=== PATIENT | female | born 1980 | race Caucasian/White ===

== ENCOUNTER 2021-09-12 19:04 | Emergency (ER) | payer OTHER, MEDICAID ==
[~2021-09-12] VITALS: Ht 170.2 cm; Wt 140.6 kg
[2021-09-12] MEDS ORDERED: NOVOLOG100 UNIT/M SUBQ (19:19)
[2021-09-12] MEDS ORDERED: AMANTADINE50 MG/5 ML PO (19:20)
[2021-09-12] MEDS ORDERED: AMOXICILLIN 50500 MG PO (19:20)
[2021-09-12] MEDS ORDERED: LANTUS100 UNIT/M SUBQ (19:20)
[2021-09-12] MEDS ORDERED: CHILDREN'S ASPI81 M1 PO (19:21)
[2021-09-12] MEDS ORDERED: LIPITOR80 MG PO (19:22)
[2021-09-12] MEDS ORDERED: PLAVIX 75 MG TA75 MG PO (19:23)
[2021-09-12] MEDS ORDERED: LAXATIVE SUPPOS10 MG RECTAL (19:23)
[2021-09-12] MEDS ORDERED: LANSOPRAZOLE PO (19:26)
[2021-09-12] MEDS ORDERED: NEURONTIN100 MG PO (19:26)
[2021-09-12] MEDS ORDERED: HYDROCORT-PRAMO30 G1 TOP (19:28)
[2021-09-12] MEDS ORDERED: CYMBALTA60 MG PO (19:29)
[2021-09-12] MEDS ORDERED: LAMICTAL (BLUE)25 MG PO (19:29)
[2021-09-12] MEDS ORDERED: MELATONIN10 M2 PO (19:30)
[2021-09-12] MEDS ORDERED: LISINOPRIL5 MG PO (19:30)
[2021-09-12] MEDS ORDERED: MAGNESIUM250 M1 PO (19:31)
[2021-09-12] MEDS ORDERED: MIRALAX119 GM PO (19:31)
[2021-09-12] MEDS ORDERED: SENEXON-S 50-81 EACH PO (19:32)
[2021-09-12] MEDS ORDERED: PYRIDOXINE HCL25 MG PO (19:32)
[2021-09-12] MEDS ORDERED: PROAIR HFA8.5 GM INH (19:34)
[2021-09-12] MEDS ORDERED: MAALOX ADVANCE355 ML PO (19:35)
[2021-09-12] MEDS ORDERED: ARTIFICIAL TEAR1510 OPHTHALMIC (19:35)
[2021-09-12] MEDS ORDERED: HYDROCODON-ACE1 EAC7 PO (19:36)
[2021-09-12] MEDS ORDERED: NARCAN4 MG NARES (19:36)
[2021-09-12] MEDS ORDERED: ONDANSETRON ODT4 MG PO (19:37)
[2021-09-12] MEDS ORDERED: SALINE NASAL SP88 ML NASAL (19:38)
[2021-09-12] MEDS ORDERED: GAS RELIEF80 MG PO (19:38)
[2021-09-12] MEDS ORDERED: DICLOFENAC SOD100 G1 TOP (19:40)
[2021-09-12] MEDS ORDERED: TRUEPLUS GLUCOSE PO (19:40)
[2021-09-12] MEDS ORDERED: LIDODERM1 EACH TRANSDERM (19:41)
[2021-09-12 21:44] VITALS: BP 155/77
== END 2021-09-12 22:23 | disposition home or self-care (01) ==
LOC: M.ERS 19:04
DX: M25.511 Pain in right shoulder (principal); M54.2 Cervicalgia; Z86.73 Personal history of transient ischemic attack (TIA), and cerebral infarction without residual deficits; Z79.4 Long term (current) use of insulin; Z79.899 Other long term (current) drug therapy; Z79.82 Long term (current) use of aspirin; W19.XXXA Unspecified fall, initial encounter; Y93.89 Activity, other specified; Y92.89 Other specified places as the place of occurrence of the external cause; Y99.8 Other external cause status

== ENCOUNTER 2021-10-09 16:18 | Emergency (ER) | payer OTHER, MEDICAID ==
[~2021-10-09] VITALS: Ht 170.2 cm; Wt 94.7 kg
[~2021-10-09 16:18] MED LIST: AMANTADINE50 MG/5 ML PO; AMOXICILLIN 50500 MG PO; ARTIFICIAL TEAR1510 OPHTHALMIC; CHILDREN'S ASPI81 M1 PO; CYMBALTA60 MG PO; DICLOFENAC SOD100 G1 TOP; GAS RELIEF80 MG PO; HYDROCODON-ACE1 EAC7 PO; HYDROCORT-PRAMO30 G1 TOP; LAMICTAL (BLUE)25 MG PO; LANSOPRAZOLE PO; LANTUS100 UNIT/M SUBQ; LAXATIVE SUPPOS10 MG RECTAL; LIDODERM1 EACH TRANSDERM; LIPITOR80 MG PO; LISINOPRIL5 MG PO; MAALOX ADVANCE355 ML PO; MAGNESIUM250 M1 PO; MELATONIN10 M2 PO; MIRALAX119 GM PO; NARCAN4 MG NARES; NEURONTIN100 MG PO; NOVOLOG100 UNIT/M SUBQ; ONDANSETRON ODT4 MG PO; PLAVIX 75 MG TA75 MG PO; PROAIR HFA8.5 GM INH; PYRIDOXINE HCL25 MG PO; SALINE NASAL SP88 ML NASAL; SENEXON-S 50-81 EACH PO; TRUEPLUS GLUCOSE PO
[2021-10-09 17:03] LABS: ABSOLUTE BASOPHILS 0.1 thou/uL (0.0-0.2); ABSOLUTE EOSINOPHILS 0.1 thou/uL (0.0-0.7); ABSOLUTE LYMPHOCYTES 1.8 thou/uL (0.8-5.3); ABSOLUTE MONOCYTES 0.4 thou/uL (0.0-1.2); ABSOLUTE NEUTROPHILS 5.3 thou/uL (1.6-8.1); BASOPHILS 1.1 %; EOSINOPHILS 1.9 %; HEMATOCRIT 35.9 % (37.0-47.0); HEMOGLOBIN 12.1 gm/dL (12.0-15.0); LYMPHOCYTES 23.1 %; MCH 28.7 pg (26.0-34.0); MCHC 33.6 g/dL (28.0-37.0); MCV 85.4 fL (80.0-100.0); MONOCYTES 4.8 %; MPV 8.7 fl. (7.2-11.1); NUCLEATED RBCS 0 /100WBC; PLATELET COUNT* 227 thou/uL (150-400); POLYS 69.1 %; RBC 4.21 mil/uL (4.20-5.00); WBC 7.6 thou/uL (4.0-11.0)
[2021-10-09 17:12] LABS: CALCIUM 8.6 mg/dL (8.5-10.1); CREATININE 0.6 mg/dL (0.6-1.3); POTASSIUM 4.1 mmol/L (3.5-5.1)
[2021-10-09 17:14] LABS: APTT 25.6 Seconds (25.0-31.3); PROTIME 9.9 Seconds (9.20-11.50)
[2021-10-09 17:28] LABS: ALBUMIN 2.5 g/dL (3.4-5.0); CK-MB MASS 0.6 ng/mL (<0.5-3.6); MAGNESIUM 1.7 mg/dL (1.8-2.4); TOTAL BILIRUBIN 0.2 mg/dL (<0.1-1.0); TOTAL PROTEIN 6.6 g/dL (6.4-8.2)
[2021-10-09 21:22] VITALS: BP 123/77
--- NOTE | 2021-10-10 09:54 | EKG ---
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
== END 2021-10-09 21:22 ==
LOC: M.ERS 16:18
PROVIDERS: Emergency Medicine
DX: R07.89 Other chest pain (principal); Z20.822 Contact with and (suspected) exposure to COVID-19; Z71.1 Person with feared health complaint in whom no diagnosis is made; E11.9 Type 2 diabetes mellitus without complications; I10 Essential (primary) hypertension; Z79.4 Long term (current) use of insulin; Z79.82 Long term (current) use of aspirin; Z79.899 Other long term (current) drug therapy

== ENCOUNTER 2021-10-23 23:03 | Emergency (ER) | payer OTHER, MEDICAID ==
[~2021-10-23] VITALS: Ht 170.2 cm; Wt 93.0 kg
[2021-10-23 23:25] LABS: URINE BILIRUBIN NEGATIVE (Negative); URINE BLOOD 3+ (Negative); URINE CLARITY CLOUDY; URINE COLOR YELLOW; URINE GLUCOSE-RANDOM NEGATIVE (Negative); URINE KETONES NEGATIVE (Negative); URINE LEUKOCYTES-REFLEX 2+ (Negative); URINE NITRITE-REFLEX POSITIVE (Negative); URINE PROTEIN 2+ (Negative); URINE UROBILINOGEN 0.2 E.U./dl (0.2-1.0)
[2021-10-23 23:41] LABS: ABSOLUTE BASOPHILS 0.1 thou/uL (0.0-0.2); ABSOLUTE EOSINOPHILS 0.2 thou/uL (0.0-0.7); ABSOLUTE MONOCYTES 0.4 thou/uL (0.0-1.2); ABSOLUTE NEUTROPHILS 4.5 thou/uL (1.6-8.1); BASOPHILS 1.1 %; EOSINOPHILS 2.7 %; HEMATOCRIT 32.4 % (37.0-47.0); LYMPHOCYTES 27.7 %; MCH 28.3 pg (26.0-34.0); MCHC 33.9 g/dL (28.0-37.0); MCV 83.5 fL (80.0-100.0); MONOCYTES 5.2 %; MPV 9.3 fl. (7.2-11.1); NUCLEATED RBCS 0 /100WBC; PLATELET COUNT* 242 thou/uL (150-400); POLYS 63.3 %; RBC 3.88 mil/uL (4.20-5.00); RDW-CV 14.6 % (10.5-14.5); WBC 7.1 thou/uL (4.0-11.0)
[2021-10-23 23:50] LABS: CALCIUM 8.6 mg/dL (8.5-10.1); CREATININE 0.6 mg/dL (0.6-1.3); POTASSIUM 4.2 mmol/L (3.5-5.1)
[2021-10-23 23:54] LABS: ALBUMIN 2.4 g/dL (3.4-5.0); MAGNESIUM 1.7 mg/dL (1.8-2.4); TOTAL BILIRUBIN 0.3 mg/dL (<0.1-1.0); TOTAL PROTEIN 6.5 g/dL (6.4-8.2)
[2021-10-24 00:08] LABS: SQUAMOUS 4-10 Moderate /LPF (0-3)
[2021-10-24 00:09] LABS: BACTERIA-REFLEX >30 Many /HPF (None Seen); CASTS None Seen /LPF (None Seen); CRYSTALS None Seen /LPF (None Seen); URINE RBC >20 Many /HPF (0-2)
[2021-10-24] MEDS ORDERED: LEVOFLOXACIN750 MG PO (02:34)
[2021-10-24 03:05] VITALS: BP 140/65
== END 2021-10-24 03:05 | disposition home or self-care (01) ==
LOC: M.ERS 23:03
PROVIDERS: Personal Emergency Response Attendant
DX: T83.84XA Pain due to genitourinary prosthetic devices, implants and grafts, initial encounter (principal); R10.84 Generalized abdominal pain; N20.0 Calculus of kidney; N39.0 Urinary tract infection, site not specified; N13.30 Unspecified hydronephrosis; E11.9 Type 2 diabetes mellitus without complications; Z79.899 Other long term (current) drug therapy

== ENCOUNTER 2021-12-05 00:46 | Inpatient (IN) | payer OTHER, MEDICAID ==
[~2021-12-05] VITALS: Ht 170.2 cm; Wt 97.8 kg
[~2021-12-05 00:46] MED LIST changes: +LEVOFLOXACIN750 MG PO
[2021-12-05 00:53] VITALS: BP 132/78
[2021-12-05] MEDS ORDERED: ELIQUIS5 M1 PO (01:01)
[2021-12-05 10:00] VITALS: BP 122/78
[2021-12-05 11:36] LABS: ABSOLUTE BASOPHILS 0.1 thou/uL (0.0-0.2); ABSOLUTE EOSINOPHILS 0.1 thou/uL (0.0-0.7); ABSOLUTE LYMPHOCYTES 1.5 thou/uL (0.8-5.3); ABSOLUTE MONOCYTES 0.3 thou/uL (0.0-1.2); ABSOLUTE NEUTROPHILS 7.4 thou/uL (1.6-8.1); BASOPHILS 0.8 %; CALCIUM 9.1 mg/dL (8.5-10.1); CREATININE 0.8 mg/dL (0.6-1.3); HEMATOCRIT 25.7 % (37.0-47.0); HEMOGLOBIN 8.8 gm/dL (12.0-15.0); LYMPHOCYTES 15.9 %; MCH 28.2 pg (26.0-34.0); MCHC 34.3 g/dL (28.0-37.0); MCV 82.3 fL (80.0-100.0); MONOCYTES 3.6 %; MPV 8.1 fl. (7.2-11.1); NUCLEATED RBCS 0 /100WBC; PLATELET COUNT* 317 thou/uL (150-400); POLYS 78.7 %; POTASSIUM 4.2 mmol/L (3.5-5.1); RBC 3.12 mil/uL (4.20-5.00); RDW-CV 15.7 % (10.5-14.5); TOTAL BILIRUBIN 0.2 mg/dL (<0.1-1.0); WBC 9.4 thou/uL (4.0-11.0)
[2021-12-05 13:16] LABS: CALCIUM 8.9 mg/dL (8.5-10.1); CREATININE 0.7 mg/dL (0.6-1.3); POTASSIUM 4.2 mmol/L (3.5-5.1)
[2021-12-05 13:19] LABS: MAGNESIUM 1.7 mg/dL (1.8-2.4); PHOSPHORUS* 4.8 mg/dL (2.5-4.9)
[2021-12-05 14:00] VITALS: BP 120/68
[2021-12-05 20:31] VITALS: BP 118/70
[2021-12-05 22:51] VITALS: BP 118/70
[2021-12-05 23:05] VITALS: BP 151/86
[2021-12-06 04:00] VITALS: BP 153/66
[2021-12-06 09:00] VITALS: BP 153/79
[2021-12-06 13:22] VITALS: BP 142/76
[2021-12-06 21:09] VITALS: BP 150/79
[2021-12-07 00:42] VITALS: BP 135/82
[2021-12-07 08:00] VITALS: BP 135/54
[2021-12-07 12:08] LABS: ABSOLUTE EOSINOPHILS 0.1 thou/uL (0.0-0.7); ABSOLUTE LYMPHOCYTES 1.5 thou/uL (0.8-5.3); ABSOLUTE MONOCYTES 0.3 thou/uL (0.0-1.2); ABSOLUTE NEUTROPHILS 6.1 thou/uL (1.6-8.1); BASOPHILS 0.4 %; EOSINOPHILS 1.3 %; HEMATOCRIT 28.1 % (37.0-47.0); HEMOGLOBIN 9.2 gm/dL (12.0-15.0); LYMPHOCYTES 19.2 %; MCHC 32.8 g/dL (28.0-37.0); MCV 85.2 fL (80.0-100.0); MONOCYTES 3.5 %; MPV 7.8 fl. (7.2-11.1); NUCLEATED RBCS 0 /100WBC; PLATELET COUNT* 305 thou/uL (150-400); POLYS 75.6 %; RDW-CV 15.4 % (10.5-14.5); WBC 8.1 thou/uL (4.0-11.0)
[2021-12-07 12:47] LABS: ALBUMIN 2.1 g/dL (3.4-5.0); CALCIUM 8.6 mg/dL (8.5-10.1); CREATININE 0.6 mg/dL (0.6-1.3); POTASSIUM 4.8 mmol/L (3.5-5.1); TOTAL BILIRUBIN 0.3 mg/dL (<0.1-1.0); TOTAL PROTEIN 6.4 g/dL (6.4-8.2)
[2021-12-07 17:21] VITALS: BP 120/68
[2021-12-07 20:25] VITALS: BP 121/57
[2021-12-08] VITALS: BP 100/56
[2021-12-08 16:08] VITALS: BP 131/70
[2021-12-08 19:45] VITALS: BP 116/67
[2021-12-09] VITALS: BP 106/68
[2021-12-09 08:00] VITALS: BP 123/73
[2021-12-09 11:35] LABS: ABSOLUTE BASOPHILS 0.1 thou/uL (0.0-0.2); ABSOLUTE EOSINOPHILS 0.2 thou/uL (0.0-0.7); ABSOLUTE LYMPHOCYTES 1.5 thou/uL (0.8-5.3); ABSOLUTE MONOCYTES 0.3 thou/uL (0.0-1.2); ABSOLUTE NEUTROPHILS 7.2 thou/uL (1.6-8.1); BASOPHILS 0.6 %; EOSINOPHILS 1.7 %; HEMATOCRIT 28.9 % (37.0-47.0); HEMOGLOBIN 9.6 gm/dL (12.0-15.0); LYMPHOCYTES 16.7 %; MCH 27.8 pg (26.0-34.0); MCHC 33.1 g/dL (28.0-37.0); MCV 84.1 fL (80.0-100.0); MONOCYTES 3.2 %; MPV 7.7 fl. (7.2-11.1); NUCLEATED RBCS 0 /100WBC; PLATELET COUNT* 330 thou/uL (150-400); POLYS 77.8 %; RBC 3.43 mil/uL (4.20-5.00); RDW-CV 15.4 % (10.5-14.5); WBC 9.3 thou/uL (4.0-11.0)
[2021-12-09 11:59] LABS: ALBUMIN 2.2 g/dL (3.4-5.0); CALCIUM 9.2 mg/dL (8.5-10.1); CREATININE 0.8 mg/dL (0.6-1.3); POTASSIUM 4.3 mmol/L (3.5-5.1); TOTAL BILIRUBIN 0.2 mg/dL (<0.1-1.0); TOTAL PROTEIN 7.5 g/dL (6.4-8.2)
[2021-12-09 14:18] LABS: URINE BILIRUBIN NEGATIVE (Negative); URINE BLOOD 3+ (Negative); URINE CLARITY SL CLOUDY; URINE COLOR YELLOW; URINE GLUCOSE-RANDOM NEGATIVE (Negative); URINE KETONES NEGATIVE (Negative); URINE NITRITE-REFLEX NEGATIVE (Negative); URINE PROTEIN 2+ (Negative); URINE SPECIFIC GRAVITY 1.025 (1.005-1.030); URINE UROBILINOGEN 0.2 E.U./dl (0.2-1.0)
[2021-12-09 14:22] LABS: URINE LEUKOCYTES-REFLEX 2+ (Negative)
[2021-12-09 14:24] LABS: CASTS None Seen /LPF (None Seen); SQUAMOUS 4-10 Moderate /LPF (0-3); URINE WBC-REFLEX >25 Many /HPF (0-5)
[2021-12-09 14:25] LABS: CRYSTALS None Seen /LPF (None Seen); URINE RBC >20 Many /HPF (0-2)
[2021-12-09 16:13] VITALS: BP 103/56
[2021-12-09 20:00] VITALS: BP 99/62
[2021-12-10] VITALS: BP 114/53
[2021-12-10 08:12] VITALS: BP 117/68
[2021-12-10 16:00] VITALS: BP 106/52
[2021-12-10 21:00] VITALS: BP 102/42
[2021-12-11 00:45] VITALS: BP 115/65
[2021-12-11 08:00] VITALS: BP 104/59
[2021-12-11 13:18] VITALS: BP 116/59
[2021-12-11 16:27] VITALS: BP 112/58
[2021-12-11 20:20] VITALS: BP 99/59
[2021-12-12] VITALS: BP 105/44
[2021-12-12 08:30] VITALS: BP 102/68
[2021-12-12 12:31] LABS: ABSOLUTE EOSINOPHILS 0.1 thou/uL (0.0-0.7); ABSOLUTE LYMPHOCYTES 1.8 thou/uL (0.8-5.3); ABSOLUTE MONOCYTES 0.2 thou/uL (0.0-1.2); ABSOLUTE NEUTROPHILS 5.4 thou/uL (1.6-8.1); BASOPHILS 0.4 %; EOSINOPHILS 1.4 %; HEMATOCRIT 29.3 % (37.0-47.0); HEMOGLOBIN 9.8 gm/dL (12.0-15.0); LYMPHOCYTES 23.6 %; MCH 28.1 pg (26.0-34.0); MCHC 33.5 g/dL (28.0-37.0); MCV 83.8 fL (80.0-100.0); MONOCYTES 2.9 %; MPV 7.8 fl. (7.2-11.1); NUCLEATED RBCS 0 /100WBC; PLATELET COUNT* 315 thou/uL (150-400); POLYS 71.7 %; RDW-CV 15.8 % (10.5-14.5); WBC 7.5 thou/uL (4.0-11.0)
[2021-12-12 12:39] LABS: CREATININE 0.7 mg/dL (0.6-1.3); POTASSIUM 4.2 mmol/L (3.5-5.1)
[2021-12-12 14:59] LABS: APTT 30.9 Seconds (25.0-31.3); PROTIME 10.3 Seconds (9.20-11.50)
[2021-12-12 16:00] VITALS: BP 103/46
[2021-12-12 20:00] VITALS: BP 131/78
[2021-12-13] VITALS: BP 17/75
[2021-12-13 04:31] VITALS: BP 124/67
[2021-12-13 08:27] VITALS: BP 109/60
--- NOTE | 2021-12-13 09:58 | EKG ---
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: : 1980 Requested By: Chun Cavazos Order Number: [id number] Tyra MD: Carlos Marks Measurements Intervals [place] Rate: 75 P: 70 RI: 168 QRS: 58 QRSD: 96 T: 96 QT: 422 QTc: 472 Interpretive Statements Sinus rhythm Nonspecific T abnormalities, lateral leads Compared to ECG 10/09/2021 16:34:19 T-wave abnormality now present Electronically Signed On 12-13-2021 9:57:34 BRANCH OFFICE ADMINISTRATOR by Carlos Marks [email or web address] <ELECTRONICALLY SIGNED> By: Carlos Marks MD, [facility] 12/13/21 0957 3 3 Carlos Marks MD, [facility] /EPI
[2021-12-13 13:40] VITALS: BP 109/60
--- NOTE | 2021-12-14 07:30 | OP ---
[facility] [address] [place] [address] OPERATIVE REPORT Name: GERRY NORTON Tara Room: [address] IN M.R.#: [id number] Admission: 12/05/21 Attend Phys: Sharmaine Almanzar Discharge: 12/13/21 Date of : 80 Report #: [id number] THIS REPORT FOR: cc: CARMEL JOSUE MD, MALATHI MD Haggard,Rickie Pacheco MD ~ DATE OF SURGERY: 12/13/2021 PREOPERATIVE DIAGNOSIS: A 9 mm right renal stone, indwelling right ureteral stent. POSTOPERATIVE DIAGNOSIS: A 9 mm right lower pole stone and indwelling ureteral stent. PROCEDURES: Cystoscopy, right stent removal, right ureteroscopy with holmium laser lithotripsy, partial stone extraction, placement of right ureteral stent with attached string and simple Evans catheterization. STAFF SURGEON: Rickie Kelley M.D. ANESTHESIA: General. ESTIMATED BLOOD LOSS: None. COMPLICATIONS: None. SPECIMENS: Right renal stone fragments. DRAINS: A 28 cm x 6-Andorran right ureteral stent. INDICATIONS: The patient is a pleasant 41-year-old paraplegic female with history of kidney stones, residing at [TIME: 01:02] [facility]. Apparently, left AMA because she did not feel like she had good care. She had been seen apparently at [facility] about 4 months ago for an obstructing stone and a right ureteral stent was put in place. She was supposed to follow up at [place], but reportedly she was never called. She presented with right flank pain. Ultrasound shows some right hydronephrosis, right stent in place, an 8 mm stone. We were consulted to assist and manage evaluation. With her questionable poor chance for followup and she is already pre-stented, I would like to diet counselor her regarding cystoscopy, right stent removal, holmium laser lithotripsy, possible stone extraction, and possible right ureteral stent replacement. She elected to proceed with that plan. After risks and benefits of the procedure explained, informed consent was obtained for this procedure. DESCRIPTION OF PROCEDURE: The patient was taken to the operating room, comfortably placed in the dorsal lithotomy [place] [address] OPERATIVE REPORT Name: GERRY NORTON Tara Room: [address]#: [id number] Admission: 12/05/21 Attend Phys: Sharmaine Almanzar Discharge: 12/13/21 Date of : 80 Report #: [id number] anesthesia. She was sterilely prepped and draped in standard fashion exposing only the genitalia. She is up-to-date on her antibiotic therapy. A 22-Andorran cystoscope was gently placed into the urethra and the bladder was surveyed. There was a stent protruding from the right ureteral orifice, otherwise unremarkable. Grasping forceps was used to grasp the stent, brought out through the urethral meatus. I was not able to place an 0.035 Glidewire to the lumen of the stent due to calcifications. The cystoscope was placed back into the bladder through the urethra. A 0.35 stent was gently placed up the right ureter at the level of kidney. The old stent was subsequently removed. A 4.5-Andorran tapered to a 6.5-Andorran [place] semirigid scope was placed through the urethra up the right ureter and gently followed all the way up to the ureter verifying there were no stones in the distal ureter. The semirigid scope was then removed and a 36 cm 13-Andorran access sheath was placed gently over the guidewire, placed it up at the level of L2, which is the same level the semirigid scope achieved. The obturator and guidewire removed. An 8-Andorran flexible scope placed through the access sheath into the kidney. All the calices were looked into, there was a 9 mm stone found in the lower pole. It could be seen under fluoroscopy. A 272 micron holmium laser fiber set at 0.5 and 15 setting. I was able to fragment the stone into multiple fragments. A tiny fragment with a 3-Andorran nitinol basket was used to remove partial obstruction. A couple 2 mm, 3 mm stone were sent off for analysis. A repeat scope was placed back through the access sheath at kidney. Laser fiber was used to just make dust out of remaining stone fragments that remained. No other significant fragments were in the kidney. The flexible scope was removed. An 0.035 Glidewire was placed through the access sheath at the level of kidney. Access sheath was removed and a 28 cm x 6-Andorran Contour stent was put in place and positioned with good coil in right renal pelvis, good coil in the bladder. A 16-Andorran coude tip catheter was put in place and that is the 16-Andorran they could find. This was secured with 10 mL of sterile water. The string was secured to the catheter. We may remove the stent in 1 week. PLAN: Follow up in our office in 6 weeks with renal ultrasound and KUB. <ELECTRONICALLY SIGNED> By: Rickie Kelley MD 12/14/21 0730 1112 [id number] Tara Kelley MD /nt
--- NOTE | 2021-12-15 10:07 | PATH ---
[address] [address] PATHOLOGY RPT PROCEDURE Name: CIERRAGERRY Room: [address] IN ..#: [id number] Admission: 12/05/21 Date of : 80 Discharge: 12/13/21 Report #: [id number] Path Case #: [id number] [facility] Accession Number: [id number] . 01 Material submitted: . kidney - KIDNEY STONES RIGHT. Modifiers: right . 01 Clinical history: . CYSTO W/ RETROGRADES STONE MANIPULATION, STENT . 02 Diagnosis: Right kidney calculi: - Consistent with calculi. - The specimen is sent out for further processing. Report pending outside analysis with results to follow in an addendum. [facility] 12/14/2021 1227 Local . 02 Electronically signed: . Isabel Cisneros MD, Pathologist NPI- [id number] . 01 Gross description: . The specimen is received fresh, labeled "Vera, Gerry, kidney stones, right". Received are 2 dark [place]ton-yellow calculi ranging from 0.2 x 0.2 x 0.1 cm to 0.3 x 0.2 x 0.1 cm. The specimen is forwarded to sendouts for further processing. ([facility]; 12/14/2021) [facility] 12/14/2021 1224 Local . 02 Pathologist provided ICD-10: N20.0 . 02 CPT . 441889 Specimen Comment: A courtesy copy of this report has been sent to [phone] Specimen Comment: [phone], Specimen Comment: Report sent to , DR SPRAGUE / DR JOSUE Specimen Comment: A duplicate report has been generated due to demographic updates. Performed at: [address], [place], [place] [id number] MD Juan A Livingston MD Phone: [phone] Performed at: [address] [id number] MD Isabel Cisneros MD Phone: [phone]
== END 2021-12-13 16:15 | DRG 660 ==
LOC: M.ERS 00:46 → M.TBA-ER 05:49 → M.2W 05:49
PROVIDERS: Family Medicine; Internal Medicine; Physician Assistant; ADMIT Internal Medicine; ATTEND Internal Medicine
PROC: 05HD33Z Insertion of Infusion Device into Right Cephalic Vein, Percutaneous Approach (ICD-10-PCS; principal; 2021-12-06)
PROC: 0T768DZ Dilation of Right Ureter with Intraluminal Device, Via Natural or Artificial Opening Endoscopic (ICD-10-PCS; 2021-12-13)
PROC: 0TP98DZ Removal of Intraluminal Device from Ureter, Via Natural or Artificial Opening Endoscopic (ICD-10-PCS; 2021-12-13)
PROC: 0TC68ZZ Extirpation of Matter from Right Ureter, Via Natural or Artificial Opening Endoscopic (ICD-10-PCS; 2021-12-13)
DX: N13.30 Unspecified hydronephrosis (principal); G82.20 Paraplegia, unspecified; L03.312 Cellulitis of back [any part except buttock and flank]; I10 Essential (primary) hypertension; L89.90 Pressure ulcer of unspecified site, unspecified stage; E10.9 Type 1 diabetes mellitus without complications; F32.9 Major depressive disorder, single episode, unspecified; E66.9 Obesity, unspecified; L89.152 Pressure ulcer of sacral region, stage 2; G25.81 Restless legs syndrome; N20.0 Calculus of kidney; N31.9 Neuromuscular dysfunction of bladder, unspecified; Z20.822 Contact with and (suspected) exposure to COVID-19; Z86.73 Personal history of transient ischemic attack (TIA), and cerebral infarction without residual deficits; I25.2 Old myocardial infarction; Z95.5 Presence of coronary angioplasty implant and graft; Z91.19 Patient's noncompliance with other medical treatment and regimen; Z59.00 Homelessness unspecified; Z68.33 Body mass index [BMI] 33.0-33.9, adult